=== PATIENT | female | born 1990 | race Native Hawaiian/Other Pacific Islander ===

== ENCOUNTER 2023-03-05 08:38 | Outpatient (CLI) | payer OTHER, SELFPAY | END 2023-03-05 08:39 | disposition home or self-care (01) | PROVIDERS: PCP Family Medicine; Referring Provider Family Medicine; Visit Provider Family Medicine | DX: Z00.00 Encounter for general adult medical examination without abnormal findings (principal); F41.8 Other specified anxiety disorders; Z13.6 Encounter for screening for cardiovascular disorders | CPT/HCPCS: 80048; 80061 ==

== ENCOUNTER 2023-06-24 13:46 | Outpatient (REF) | payer OTHER, SELFPAY | END 2023-06-24 13:47 | disposition home or self-care (01) | LOC: NFLDREF 13:46 | PROVIDERS: PCP Family Medicine; Referring Provider Family Medicine; Visit Provider Nurse Practitioner Family | DX: F41.0 Panic disorder [episodic paroxysmal anxiety] (principal); Z79.899 Other long term (current) drug therapy; F98.8 Other specified behavioral and emotional disorders with onset usually occurring in childhood and adolescence | CPT/HCPCS: 82306; 84443 ==

== ENCOUNTER 2023-09-28 12:32 | Outpatient (CLI) | payer OTHER, SELFPAY | END 2023-09-28 12:33 | disposition home or self-care (01) | LOC: NFLDREF 10-03 06:30 | PROVIDERS: PCP Family Medicine; Referring Provider Family Medicine; Visit Provider Family Medicine | DX: N39.0 Urinary tract infection, site not specified (principal); N30.01 Acute cystitis with hematuria | CPT/HCPCS: 87086; 87186 ==

== ENCOUNTER 2024-01-08 12:30 | Emergency (ER) | payer OTHER, SELFPAY ==
[2024-01-08] VITALS (9 sets, daily range): BP systolic 106–112; BP diastolic 57–80; PULSE 53–70; RESP 16; TEMP 36.2; O2SAT 99–100; BMI 28.9
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
[2024-01-08] MEDS: ONDANSETRON 2 MG/ML inj 4 MG IVP (13:42)
[2024-01-08] MEDS: 0.9 % SODIUM CHLORIDE 500 ML 500 ML IV (13:42)
[2024-01-08] MEDS: diphenhydrAMINE 50 MG/ML inj 25 MG IVP (13:42)
[2024-01-08] MEDS: KETOROLAC 30 MG/ML inj IVP (13:42)
== END 2024-01-08 14:33 | disposition home or self-care (01) ==
PROVIDERS: Emergency Provider Family Medicine; PCP Family Medicine
DX: G43.901 Migraine, unspecified, not intractable, with status migrainosus (principal); S06.0X0A Concussion without loss of consciousness, initial encounter
CPT/HCPCS: 70450; 96374; 96375; 99284; J1200; J1885; J2405; J7030

== ENCOUNTER 2024-05-16 15:33 | Outpatient (CLI) | payer OTHER, SELFPAY | END 2024-05-16 15:34 | disposition home or self-care (01) | PROVIDERS: PCP Family Medicine; Referring Provider Family Medicine; Visit Provider Nurse Practitioner Family | DX: N30.00 Acute cystitis without hematuria (principal); B96.20 Unspecified Escherichia coli [E. coli] as the cause of diseases classified elsewhere | CPT/HCPCS: 87086; 87186 ==

== ENCOUNTER 2024-07-06 11:19 | Outpatient (CLI) | payer BC, SELFPAY | END 2024-07-06 11:20 | disposition home or self-care (01) | LOC: LKVREF 11:21 | PROVIDERS: PCP Family Medicine; Visit Provider Family Medicine | DX: Z00.00 Encounter for general adult medical examination without abnormal findings (principal) | CPT/HCPCS: 88141; 88142 ==

== ENCOUNTER 2024-10-12 09:02 | Outpatient (CLI) | payer BC, SELFPAY ==
[2024-10-12 14:26] LABS: Bacterial Vaginosis* Negative (Negative); Candida glab/krus NOT DETECTED (No Detected); Candida species DETECTED (No Detected); Trichomonas vaginalis NOT DETECTED (No Detected)
[2024-10-12 14:57] LABS: Chlamydia DNA Amplified* NOT DETECTED (No Detected); GC DNA Amplified* NOT DETECTED (No Detected)
== END 2024-10-12 09:03 | disposition home or self-care (01) ==
PROVIDERS: PCP Family Medicine; Visit Provider Registered Nurse
DX: Z11.3 Encounter for screening for infections with a predominantly sexual mode of transmission (principal)
CPT/HCPCS: 81513; 87481; 87491; 87591; 87661

== ENCOUNTER 2024-12-05 08:27 | Outpatient (CLI) | payer MEDICAID, SELFPAY ==
--- NOTE | 2024-12-05 08:15 | CRLHL7_ITS ---
For Patients: As a result of the Cures Act, medical imaging exams and procedure reports are released immediately into your electronic medical record. You may view this report before your referring provider. If you have questions, please contact your health care provider. OB ULTRASOUND INDICATION: Ultrasound for dates and viability. TECHNIQUE: Transabdominal and transvaginal 1st trimester OB ultrasound. Transvaginal images obtained for better characterization of the gestational sac and possible subchorionic hemorrhage. Grayscale and M-Mode Doppler images. LMP: 09/19/2024. TAWANNA by LMP: 06/26/2025. GA: 11 w, 0 d. Previous US: No. CRL: 4.4 cm. 11 w 1 d. TAWANNA: 06/25/2025. FHR: 163 BPM. Gestational sac: 4.4 cm, small in size. Yolk sac: 4.6 mm. Right ovary: 3.1 x 1.8 x 1.4 cm. Left ovary: N/V. IMPRESSION: 1. Single viable intrauterine . 2. Large inferior subchorionic hemorrhage involving a majority of the gestational sac. Sharif Hobbs M.D. Body/Diagnostic Radiologist [email or web address] RAQUEL/dominique fox/Dictated by: Sharif Hobbs MD @ 12/06/2024 9:15:00 AM (Electronically Signed)
== END 2024-12-05 08:28 | disposition home or self-care (01) ==
LOC: US 08:28
PROVIDERS: PCP Family Medicine; Visit Provider Advanced Practice Midwife
DX: Z34.91 Encounter for supervision of normal pregnancy, unspecified, first trimester (principal); O20.9 Hemorrhage in early pregnancy, unspecified; Z3A.11 11 weeks gestation of pregnancy
CPT/HCPCS: 76801; 76817; 83021; 86592; 86703; 86704; 86706; 86762; 86787; 86803; 86850; 86900; 86901; 87340

== ENCOUNTER 2024-12-05 11:31 | Outpatient (CLI) | payer BC, SELFPAY | END 2024-12-05 11:32 | disposition home or self-care (01) | PROVIDERS: PCP Family Medicine; Visit Provider Advanced Practice Midwife | DX: Z34.91 Encounter for supervision of normal pregnancy, unspecified, first trimester (principal); Z3A.11 11 weeks gestation of pregnancy | CPT/HCPCS: 83020; 83021; 85660; 86592; 86703; 86704; 86706; 86762; 86787; 86803; 86850; 86900; 86901; 87086; 87340 ==

== ENCOUNTER 2025-02-07 11:14 | Outpatient (CLI) | payer MEDICAID, SELFPAY ==
--- NOTE | 2025-02-07 11:15 | CRLHL7_ITS ---
For Patients: As a result of the Century Cures Act, medical imaging exams and procedure reports are released immediately into your electronic medical record. You may view this report before your referring provider. If you have questions, please contact your health care provider. OB ULTRASOUND GREATER THAN 14 WEEKS, 02/07/2025 CLINICAL HISTORY: Supervision of normal . COMPARISON: None. TECHNIQUE: Real time bradley scale imaging of the fetus was performed. Transabdominal imaging performed. survey. FINDINGS: LMP: 09/19/2024. TAWANNA by LMP: 06/26/2025. GA: 20 weeks 1 day. POSITION: Vertex. CERVIX: Visualized. Technique: TA. Length of closed cervix: 3.8 cm. PLACENTA/CORD: Placenta Position: Fundal, right wall. Technique: TA. Placenta tip to internal OS: 9.0 cm. Umbilical Cord: 3 vessel. Placenta Insertion: Centra. AMNIOTIC FLUID: 5.3 cm SDP. OBSERVED STRUCTURES: CALVARIUM/SPINE: Cerebellum: 1.9 cm, 19 weeks 3 days Cisterna Magna: 4.2 mm Nuchal Fold: 4.5 mm Lateral Ventricles: 6.5 mm CSP Midline Falx Choroid Plexus Spine ABDOMEN: Stomach Abd Cord Insert Urinary Bladder Kidneys Diaphragm FACE: Nose/Lips Orbital View Profile LIMBS: Upper Extremities Lower Extremities Hands Feet VASCULAR: 4 Ch Heart LVOT RVOT 3VV 3VTV BIOMETRY: BPD: 48 cm, 20 weeks 4 days. 67% HC: 17.8 cm, 20 weeks 1 day. 44% AC: 15.7 cm, 20 weeks 6 days. 68% FL: 3.4 cm, 20 weeks 5 days. 62% FL/AC: 21.66% HC/AC: 1.13. Heart Rate: 152 bpm. Age by this US: 20 weeks 3 days. TAWANNA by this US: 06/24/2025. EFW: 371.69 grams, 0 lb 13 oz. Percentile by TAWANNA: 77% IMPRESSION: 1. Normal anatomic survey. 2. Concordance of clinical and sonographic dating. Edil Silva M.D. Diagnostic Radiologist [email or web address] Transcribed: 1:15 pm DW/Dictated by: Edil Silva MD @ 02/07/2025 12:31:00 PM (Electronically Signed)
== END 2025-02-07 11:15 | disposition home or self-care (01) ==
LOC: US 11:16
PROVIDERS: PCP Family Medicine; Visit Provider Advanced Practice Midwife
DX: Z34.92 Encounter for supervision of normal pregnancy, unspecified, second trimester (principal); Z3A.20 20 weeks gestation of pregnancy
CPT/HCPCS: 76805; 87086

== ENCOUNTER 2025-02-27 22:52 | Outpatient (CLI) | payer MEDICAID, SELFPAY ==
[2025-02-27 23:16] VITALS: BP 115/64; PULSE 71; RESP 18; TEMP 37.1
[2025-02-27 23:31] LABS: Appearance Urine Clear (Clear); Bilirubin Urine Negative (Negative); Blood Urine Negative (Negative); Color Urine Yellow (Yellow); Glucose Urine Negative (Negative); Ketones Urine Negative (Negative); Leukocyte Esterase Urine Negative (Negative); Nitrite Urine Negative (Negative); Protein Urine Negative (Negative); Specific Gravity Urine 1.015 (1.000-1.030)
[2025-02-28 00:27] LABS: Bacterial Vaginosis* Negative (Negative); Candida glab/krus NOT DETECTED (No Detected); Candida species DETECTED (No Detected); Trichomonas vaginalis NOT DETECTED (No Detected)
[2025-02-28] MEDS: FLUCONAZOLE 150 MG TABLET PO (00:57)
--- NOTE | 2025-02-28 01:14 | PC.OBNST ---
NST Note NST Note Start: 02/27/25 23:05 Freq: ONCE Status: Active Protocol: Document 02/28/25 01:12 SIMONE (Rec: 02/28/25 01:14 SIMONE [email or web address]) NST Note 3 Para (# of births) 3 EDC 06/26/25 Gestational Age In 23 Weeks & 1 Days Weeks & Days Patient Presented Contractions/cramping with Complaint(s) of Reactive Yes Appropriate for Yes Gestational Age RN Ajay Santamaria RN Date 02/28/25 Appropriate for Yes Gestational Age JAIRO Sargent RN Date 02/28/25 OB NST charge Yes Complete NST Note Yes via Write Note The provider's electronic signature indicates the NST is reactive/appropriate for gestational age. *Note to provider: If an addendum is required, open the patient's chart and click on the note under the Nurse/Allied Health tab.
== END 2025-02-28 01:02 | disposition home or self-care (01) ==
LOC: OB OUT 22:52 → OB 22:53
PROVIDERS: PCP Family Medicine; Visit Provider Advanced Practice Midwife
DX: O47.02 False labor before 37 completed weeks of gestation, second trimester (principal); Z3A.23 23 weeks gestation of pregnancy
CPT/HCPCS: 59025; 81003; 81513; 87481; 87661; G0463; A9270

== ENCOUNTER 2025-04-02 11:08 | Outpatient (CLI) | payer BC, SELFPAY | END 2025-04-02 11:09 | disposition home or self-care (01) | LOC: NFLDREF 04-04 00:26 | PROVIDERS: PCP Family Medicine; Referring Provider Family Medicine; Visit Provider Advanced Practice Midwife | DX: Z34.92 Encounter for supervision of normal pregnancy, unspecified, second trimester (principal); Z3A.27 27 weeks gestation of pregnancy | CPT/HCPCS: 86592 ==

== ENCOUNTER 2025-05-29 10:40 | Outpatient (CLI) | payer BC, SELFPAY | END 2025-05-29 10:41 | disposition home or self-care (01) | LOC: NFLDREF 06-04 16:17 | PROVIDERS: PCP Family Medicine; Referring Provider Family Medicine; Visit Provider Midwife | DX: Z34.93 Encounter for supervision of normal pregnancy, unspecified, third trimester (principal) | CPT/HCPCS: 87081; 87653 ==

== ENCOUNTER 2025-06-05 07:24 | Outpatient (CLI) | payer BC, SELFPAY ==
[2025-06-05 07:33] VITALS: PULSE 72; O2SAT 99
[2025-06-05 07:42] VITALS: BP 121/69; PULSE 67
[2025-06-05] MEDS: TERBUTALINE 1 MG/ML INJ 0.25 MG SUBCUT (08:55)
--- NOTE | 2025-06-05 12:59 | PC.OBNST ---
NST Note NST Note Start: 06/05/25 07:30 Freq: ONCE Status: Active Protocol: Document 06/05/25 12:56 KATELYNN (Rec: 06/05/25 12:58 KATELYNN [id number]) NST Note 4 Para (# of births) 3 EDC 06/26/25 Gestational Age In 37 Weeks & 0 Days Weeks & Days Other Complaints ECV Reactive Yes Appropriate for Yes Gestational Age JAIRO Oden RN Date 06/05/25 Reactive Yes Appropriate for Yes Gestational Age JAIRO Lee RN Date 06/05/25 OB NST charge Yes Complete NST Note Yes via Write Note The provider's electronic signature indicates the NST is reactive/appropriate for gestational age. *Note to provider: If an addendum is required, open the patient's chart and click on the note under the Nurse/Allied Health tab.
[2025-06-05 21:19] VITALS: BP 139/79; PULSE 100
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
== END 2025-06-05 10:46 | disposition home or self-care (01) ==
LOC: OB 12:27 → OB CLI 06-06 08:23
PROVIDERS: PCP Family Medicine; Visit Provider Obstetrics & Gynecology
DX: O32.1XX0 Maternal care for breech presentation, not applicable or unspecified (principal); Z3A.37 37 weeks gestation of pregnancy
CPT/HCPCS: 59025; 59412; 76815; G0463; J3105

== ENCOUNTER 2025-06-19 10:36 | Outpatient (CLI) | payer BC, SELFPAY ==
--- NOTE | 2025-06-19 10:45 | CRLHL7_ITS ---
For Patients: As a result of the Cures Act, medical imaging exams and procedure reports are released immediately into your electronic medical record. You may view this report before your referring provider. If you have questions, please contact your health care provider. OB ULTRASOUND FOLLOW-UP/LIMITED CLINICAL HISTORY: Size vs dates. TECHNIQUE: Real time bradley scale imaging of the fetus was performed. Transabdominal imaging performed. FINDINGS: TAWANNA by LMP/US: 06/26/2025. GA: 39 weeks 0 days. Gestation: Single. COMPARISON: 02/07/2025. Cervix: Not visualized Positioning: Vertex. Amniotic Fluid: 6.1 cm SDP. Placenta: Technique: TA. Placenta Position: Anterior. Dopplers: Heart Rate: 142 bpm. BIOMETRY BDP: 9.6 cm, 39 weeks 0 days. 82% HC: 34.7 cm, 40 weeks 1 day. 67% AC: 37.2 cm, 41 weeks 1 day. >97% FL: 7.3 cm, 37 weeks 4 days. 21% FL/AC Ratio: 19.71% HC/AC Ratio: 0.93% EFW: 3974 grams, 8 lb 12 oz. Age by this US: 39 weeks 3 days. TAWANNA by this US: 06/23/2025. Percentile by TAWANNA: 89% IMPRESSION: 1. Sonographic gestational age 39 weeks 3 days and sonographic due date 06/23/2025. Good correlation with dates. Normal interval growth. 2. Estimated weight 89th percentile. Abdominal circumference greater than 97th percentile. Edil Silva M.D. Diagnostic Radiologist [email or web address] Transcribed: 1:43 pm DW/Dictated by: Edil Silva MD @ 06/19/2025 11:20:00 AM (Electronically Signed)
== END 2025-06-19 10:37 | disposition home or self-care (01) ==
PROVIDERS: PCP Family Medicine; Visit Provider Advanced Practice Midwife
DX: Z36.89 Encounter for other specified antenatal screening (principal); Z3A.39 39 weeks gestation of pregnancy
CPT/HCPCS: 76816

== ENCOUNTER 2025-06-25 11:01 | Outpatient (CLI) | payer BC, SELFPAY ==
[2025-06-25 12:08] VITALS: BP 130/71; PULSE 70; PULSE 76; RESP 16; TEMP 36.9; O2SAT 98
[2025-06-25] MEDS: ACETAMINOPHEN 500 MG TABLET 1000 MG PO (12:49)
[2025-06-25 12:54] LABS: Trichomonas No Trichomonas Seen (None Seen)
[2025-06-25 13:05] LABS: Amnisure Rom* Negative
--- NOTE | 2025-06-25 14:33 | PC.OBNST ---
NST Note NST Note Start: 06/25/25 11:21 Freq: ONCE Status: Active Protocol: Document 06/25/25 13:45 CWP (Rec: 06/25/25 14:33 CWP Desktop) NST Note 4 Para (# of births) 3 EDC 06/26/25 Gestational Age In 39 Weeks & 6 Days Weeks & Days Patient Presented Leaking fluid,Decreased movement,Pain with Complaint(s) of If Pain, describe intermittent, lower abdominal/pelvic pain location Reactive Yes Appropriate for Yes Gestational Age RN Leslie Vivar RNC Date 06/25/25 Reactive Yes Appropriate for Yes Gestational Age RN Ivory Bridges RN Date 06/25/25 OB NST charge Yes Complete NST Note Yes via Write Note The provider's electronic signature indicates the NST is reactive/appropriate for gestational age. *Note to provider: If an addendum is required, open the patient's chart and click on the note under the Nurse/Allied Health tab.
== END 2025-06-25 13:30 | disposition home or self-care (01) ==
LOC: OB OUT 11:03 → OB 11:43
PROVIDERS: PCP Family Medicine; Visit Provider Advanced Practice Midwife
DX: O47.1 False labor at or after 37 completed weeks of gestation (principal); O36.8130 Decreased fetal movements, third trimester, not applicable or unspecified; Z3A.39 39 weeks gestation of pregnancy
CPT/HCPCS: 59025; 84112; 87210; G0463; A9270

== ENCOUNTER 2025-06-30 00:48 | Inpatient (IN) | payer BC, SELFPAY ==
[2025-06-30] VITALS (111 sets, daily range): BP systolic 101–171; BP diastolic 57–103; PULSE 69–121; RESP 16–20; TEMP 36.3–37.2; O2SAT 95–99; BMI 38.0
[2025-06-30 00:14] LABS: Hematocrit* 31.3 % (33.0-51.0); Hemoglobin* 10.5 gm/dL (12.0-16.0); Immature Granulocytes Abs Auto 0.04 K/uL (0.00-0.30); Immature Granulocytes Pct Auto 0.4 %; Lymphocytes Absolute Auto 2.35 K/uL (0.90-2.90); Mean Corpuscular HGB Conc 34 gm/dL (32-36); Mean Corpuscular Hemoglobin 29 pg (26-34); Mean Corpuscular Volume 87 fL (80-100); RDW Coefficient of Variation % 13.3 % (11.5-15.5); Red Blood Count* 3.61 m/uL (4.00-5.20); White Blood Count* 10.23 K/uL (4.50-11.00)
[2025-06-30 00:16] LABS: Slide Review Reflex No
[2025-06-30] MEDS: LACTATED RINGERS 1000 ML 1,000 ML 500 ML IV (00:48)
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
[2025-06-30 01:37] LABS: Alanine Aminotransferase* 26 U/L (4-35); Aspartate Amino Transferase* 44 U/L (12-35); Creatinine* 0.7 mg/dL (0.5-1.5); Estimated Glomerular Filt Rate 117 ml/min
[2025-06-30] MEDS: ROPIVACAINE 0.2% 100 ml 100 ML 12 MG EPIDURAL (02:08)
[2025-06-30] MEDS: LIDOCAINE 2% (PF) 5 ML VIAL EPIDURAL (02:08)
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
[2025-06-30] MEDS: LACTATED RINGERS 1000 ML 1,000 ML IV (02:27)
--- NOTE | 2025-06-30 02:55 | PM.OBPNL ---
Subjective Date Seen: 06/30/25 Narrative: Fabiana presented to L&D in spontaneous labor. she is now comfortable with labor epidural and open to SVE and possibly AROM if appropriate. Objective Exam: Vitals Reviewed Constitutional:? Alert and oriented x3 Cervix: 9 cm/100%/0 to -1 station/vertex, anterior, soft/stretchy AROM: small amt of clear fluid NST: 150 bpm/mod variability/+ accelerations/no decelerations/approx q 3-4 min apart contractions Vital Signs: Last Vital Signs Pulse 82 06/30/25 02:50 BP 128/71 06/30/25 02:50 Pulse Ox 98 06/30/25 02:19 Plan Plan: ASSESSMENT:? 35 at 40.4 weeks gestation? complicated by:?anxiety/depression: on meds Labor type: Spontaneous, active labor? Category 1 FHR pattern.?? Labor complicated by: none? GBS neg labor epidural AROM: clear fluid? ? PLAN:? 1. Routine intrapartum cares as ordered. Continue with expectant management? 2. Monitoring per policy, continuous 3. Reposition pt prn to promote descent 4. Anticipate ?
[2025-06-30 03:50] LABS: Protein Creatinine Ratio Urine 0.45 (0-0.19)
[2025-06-30] MEDS: LACTATED RINGERS 1000 ML 1,000 ML 125 ML IV (06:21)
--- NOTE | 2025-06-30 07:05 | P.OBPN_ITS ---
Subjective Date Seen: 06/30/25 Narrative: Fabiana is a 35 y.o. [id number] at 40w4d who presented [facility] in spontaneous labor. she progressed to complete after labor epidural and AROM. she was complete as I was able to reduce an anterior lip while pushing at 0300, but the lip kept coming back so at 0348 we took a break from pushing to do the [employer] and help baby rotate. from my best assessment at the time I thought baby was in an ROT position, but was not wanting to move past the pubic bone. From around 0400 to 0640 pt was in a variety of positions as well as laboring down as RN thought her cervix then went back to 8 and then 9. currently 10 cm, but baby is still acinclytic, but better applied tothe cervix. Will continue to push and utilize a variety of position changes to assist in rotation and descent. pt tolerating labor well. Objective Exam: Vitals Reviewed Constitutional:? Alert and oriented x3 Cervix: 10 cm/100%/-2 station/vertex NST: 155 bpm/mod variability/+accelerations/some small variables and early dec elerations/2-3 min approx contractions Vital Signs: Last Vital Signs Temp 98.9 F 06/30/25 06:23 Pulse 74 06/30/25 06:37 Resp 20 06/30/25 06:23 BP 123/66 06/30/25 06:37 Pulse Ox 98 06/30/25 02:19 Plan Plan: ASSESSMENT:? 35 at 40.4 weeks gestation? complicated by:?anxiety/depression: on meds, pre-eclampsia Labor type: Spontaneous, active labor? Category 1 FHR pattern.?? Labor complicated by: pre-e, GBS neg labor epidural AROM: clear fluid? ? PLAN:? 1. Routine intrapartum cares as ordered. Continue with expectant management? 2. Monitoring per policy, continuous 3. Reposition pt prn to promote descent and continue pushing as appropriate. 4. Anticipate ?
[2025-06-30] MEDS: OXYTOCIN 30 unit/500 ML in NS 30 UNIT/500 ML BAG IVPB (07:34)
[2025-06-30] MEDS: METHYLERGONOVINE MALEATE 0.2 MG/ML INJ IM (07:45)
[2025-06-30] MEDS: CEFAZOLIN 2 GM in 0.9 % SODIUM CHLORIDE Mini-bag 100 ML IVPB (07:58)
--- NOTE | 2025-06-30 08:30 | W.PM.OBVAGDE ---
OB Procedure Vag Delivery Mother Details Mother Details: The patient is a 35 year-old, 4, Para 3, admitted on 06/30/25 at 40 4/7 weeks gestation. Admission Date: 06/30/25 Additional Details Amniotic Membrane Rupture Date: 06/30/25 Amniotic Membrane Rupture Time: 02:52 Amniotic Membrane Fluid Description: Clear Analgesia/Anesthesia Type: Epidural Waterbirth: No Pitcoin: Yes (last 5 min of pushing and AMTSL) Intrapartal Events: None Delivery augmentation: rupture of membranes Labor Onset: 00:00 Complete: 06:44 Pushin:44 Heart: heart tones during second stage were cat 2 with increasing baseline to 160s, moderate variability and variable deceleration. On my arrival to room at 0730, progress excellent and delivery hastened. Delivery Details Delivery Date: 06/30/25 Delivery Time: 07:39 Route of delivery: Infant Gender: Female Viability: Alive; Heart Rate Present Position at Delivery: OA Delivery Details: Patient was admitted for ONE[place] and progressed normally until about 8 cm. Baby was known asynclitic and OT and cupola melter helper was unable to successfully rotate the baby. Lip of cervix also attempted to be reduced without success. These attempts were done prior to full completion due to Fabiana's very strong urge to push and difficulty not pushing. Without success, position changes and increased efforts to not push to encourage rotation. Baby CATRACHO on my arrival to room and with one more position change for more effective pushing, rapid progress was made. 2 mL of pitocin was started 5 min prior to to assist patient with power and she felt she did not have the energy anymore. AROM 0252 with clear fluid. Patient was complete at 0644 and pushing at 0644. of a viable female at 0739 in OA. Vertex delivered OA. No nuchal cord or shoulder. Body delivered easily and without incident. passed to mothers abdomen with a vigorous cry. Cord was clamped and cut at > 5 minutes. APGARS were 8 at one minute and 9 at five minutes respectively. Baby respiratory effort changed quite a while after the and eventually she got CPAP. See nursing notes. Mouth was bulb suctioned immediately after . Increased vaginal bleeding prompted pit start and cord clamping at approximately 5 min after . Maternal efforts for third stage with no success and minimal traction produced sensation of cord evulsion. Clamp applied higher than where evulsion was occurring and maternal efforts continued without success of placental delivery. Pitocin for AMTSL was running. I requested methergine for its improved efficacy and assisting to promote delivery of retained placenta, especially due to history of hemorrhage. At the time, the mild BP elevations were not at the forefront of my thoughts. CGM requested to bedside. Minimal traction on the clamp revealed the cord had already evulsed and bleeding was stopped at this point. While waiting, fundal pressure and further vaginal assessment revealed frontal edge of placenta in cervical canal. Careful grasping of this edge with gentle traction and maternal efforts continued intermittently, giving Fabiana some breaks between. Dr Yash Aguilar was able to remove the placenta easily and stated a sweep of the uterus later did not reveal any retained products. Fundus firm. 2 g Ancef given. TXA given. Intact canal and perineum. QBL 740 cc. Mother and baby stable but severe range BP noted in the recovery period. Labetalol given and Magnesium for seizure prophylaxis started. Mother plans to breastfeed. Infant weight pending.?Repeat Pre-e labs ordered. Normal reflexes, neg clonus and no vision changes. She is complaining of a mild posterior SINGH that she feels is related to the hormonal shaking. Dr Yash Aguilar updated and consult for severe pre-e sent. 1 Minute Interval Total Score: 8 5 Minute Interval Total Score: 9 Additional Details Shoulder Dystocia: No Placenta Delivery Time: 07:52 Placental Delivery Description: Spontaneous Procedure Done: Global Blood Loss: 740 Laceration: None Episiotomy Description: None Blood Loss Measurement Type: QBL Bakri Used: No Sponge/Need Count Correct: Yes Cord Vessel Description: 3 Vessels Event Summary Status: Mother and infant were stable after delivery with peds attending to the baby and improving respiratory status but currently not needing a higher level of care and transfer. Disposition: floor
[2025-06-30] MEDS: LABETALOL HCL 5 MG/ML inj IVP ×3 (08:37→09:03)
[2025-06-30] MEDS: MAGNESIUM IV 4 GM/100 ML PIGGYBACK IVPB (08:53)
[2025-06-30] MEDS: ACETAMINOPHEN 500 MG TABLET 1000 MG PO (09:13)
[2025-06-30 09:23] LABS: Hematocrit* 32.3 % (33.0-51.0); Hemoglobin* 10.8 gm/dL (12.0-16.0); Mean Corpuscular HGB Conc 33 gm/dL (32-36); Mean Corpuscular Hemoglobin 29 pg (26-34); Mean Corpuscular Volume 87 fL (80-100); Red Blood Count* 3.73 m/uL (4.00-5.20); White Blood Count* 13.78 K/uL (4.50-11.00)
[2025-06-30 09:24] LABS: Slide Review Reflex No
[2025-06-30] MEDS: MAGNESIUM Infusion 40 GM/1,000 ML IV.SOLN IVPB (09:38)
[2025-06-30 09:44] LABS: Alanine Aminotransferase* 33 U/L (4-35); Aspartate Amino Transferase* 52 U/L (12-35); Blood Urea Nitrogen* 8 mg/dL (5-24); Creatinine* 0.9 mg/dL (0.5-1.5); Estimated Glomerular Filt Rate 87 ml/min
[2025-06-30] MEDS: TRANEXAMIC ACID 100 MG/ML INJ 1000 MG IV (09:53)
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
[2025-06-30] MEDS: LACTATED RINGERS 1000 ML 1,000 ML 75 ML IV (16:37)
[2025-06-30 17:17] LABS: Hematocrit* 31.3 % (33.0-51.0); Hemoglobin* 10.4 gm/dL (12.0-16.0); Mean Corpuscular HGB Conc 33 gm/dL (32-36); Mean Corpuscular Hemoglobin 29 pg (26-34); Mean Corpuscular Volume 88 fL (80-100); Red Blood Count* 3.55 m/uL (4.00-5.20); White Blood Count* 14.93 K/uL (4.50-11.00)
[2025-06-30 17:26] LABS: Slide Review Reflex No
[2025-06-30 17:33] LABS: Alanine Aminotransferase* 28 U/L (4-35); Aspartate Amino Transferase* 49 U/L (12-35); Blood Urea Nitrogen* 5 mg/dL (5-24); Creatinine* 0.7 mg/dL (0.5-1.5); Est. Creatinine Clearance* 94.56; Estimated Glomerular Filt Rate 117 ml/min
[2025-06-30] MEDS: FERROUS SULFATE 325 MG TABLET PO (21:10)
[2025-06-30 23:23] LABS: Hematocrit* 28.4 % (33.0-51.0); Hemoglobin* 9.5 gm/dL (12.0-16.0); Mean Corpuscular HGB Conc 34 gm/dL (32-36); Mean Corpuscular Hemoglobin 29 pg (26-34); Mean Corpuscular Volume 87 fL (80-100); Red Blood Count* 3.26 m/uL (4.00-5.20); White Blood Count* 14.70 K/uL (4.50-11.00)
[2025-06-30 23:28] LABS: Slide Review Reflex No
[2025-06-30 23:38] LABS: Alanine Aminotransferase* 33 U/L (4-35); Aspartate Amino Transferase* 66 U/L (12-35); Blood Urea Nitrogen* 5 mg/dL (5-24); Creatinine* 0.7 mg/dL (0.5-1.5); Est. Creatinine Clearance* 94.56; Estimated Glomerular Filt Rate 117 ml/min
[2025-07-01] VITALS (9 sets, daily range): BP systolic 101–152; BP diastolic 64–98; PULSE 71–83; RESP 16–18; TEMP 36.3–36.6; O2SAT 94–98
[2025-07-01] MEDS: MAGNESIUM Infusion 40 GM/1,000 ML IV.SOLN IVPB (04:18)
[2025-07-01] MEDS: LACTATED RINGERS 1000 ML 1,000 ML 75 ML IV (04:40)
[2025-07-01 06:28] LABS: Hematocrit* 28.0 % (33.0-51.0); Hemoglobin* 9.4 gm/dL (12.0-16.0); Mean Corpuscular HGB Conc 34 gm/dL (32-36); Mean Corpuscular Hemoglobin 29 pg (26-34); Mean Corpuscular Volume 88 fL (80-100); Red Blood Count* 3.20 m/uL (4.00-5.20); White Blood Count* 11.18 K/uL (4.50-11.00)
[2025-07-01] MEDS: ACETAMINOPHEN 500 MG TABLET 1000 MG PO ×2 (06:34→23:55)
[2025-07-01 06:41] LABS: Slide Review Reflex No
[2025-07-01 06:48] LABS: Alanine Aminotransferase* 31 U/L (4-35); Aspartate Amino Transferase* 65 U/L (12-35); Blood Urea Nitrogen* 4 mg/dL (5-24); Creatinine* 0.7 mg/dL (0.5-1.5); Est. Creatinine Clearance* 94.56; Estimated Glomerular Filt Rate 117 ml/min
[2025-07-01] MEDS: IBUPROFEN 600 MG TABLET PO ×2 (09:37→17:12)
[2025-07-01] MEDS: DOCUSATE SODIUM 100 MG CAPSULE PO (09:38)
--- NOTE | 2025-07-01 09:59 | PM.OBPNVD1 ---
OB - PN:Subj Subjective Time Seen by Provider: 13:08 Date Seen: 07/01/25 Narrative: The patient is a 35 year old G 4 P 40 0 4 at 44/7 weeks gestation that was admitted to the Center on 06/30/25 in labor for delivery. Delivery complicated by retained placenta, assisted with manual removal of placenta. During admission met criteria for preeclampsia with 2 elevated blood pressures more than 4 hours apart and elevated P/C ratio. Immediately after delivery develops persistent severely elevated blood pressures that required IV antihypertensive medication therapy(IV Labetalol 20mg x1, 40 mg x1, 80mg x1). She is status post 24 hours of magnesium sulfate for seizure prophylaxis this morning. Overnight patient had no complaints. Her pain is well controlled on oral pain medications. She is tolerating a regular diet. She has passed flatus. She is ambulating without difficulty. Lochia is scant. She is urinating without cid. Patient denies chest pain, SOB, n/v, headache, RUQ pain, vision changes, dizziness. OB - PN: Obj Exam Physical Exam: Vital signs: Temp Pulse Resp BP Pulse Ox O2 Del Method 97.7 F 77 16 112/70 97 Room Air 07/01/25 04:22 07/01/25 04:22 07/01/25 06:35 07/01/25 06:35 07/01/25 06:35 07/01/25 06:35 Narrative: Physical exam: General: No acute distress Psych: Alert and oriented x4, full affect HEENT: Normocephalic, atraumatic Heart: Regular rate and rhythm, no murmur rub or gallop Lungs: Clear to auscultation bilaterally Abdomen: Normoactive bowel sounds, soft, no tenderness, rebound, or guarding, no masses, no hepatosplenomegaly, no hernias Skin: No lesions or rashes Lower extremities: 2+ bilateral lower extremity edema Pelvic exam: Scant lochia on pad OB - PN: Obj Data Labs Labs: Laboratory Results - last 24 hr 06/30/25 06/30/25 07/01/25 17:10 23:16 05:25 WBC 14.93 H 14.70 H 11.18 H RBC 3.55 L 3.26 L 3.20 L Hgb 10.4 L 9.5 L 9.4 L Hct 31.3 L 28.4 L 28.0 L MCV 88 87 88 MCH 29 29 29 MCHC 33 34 34 Plt Count 193 210 204 BUN 5 5 4 L Creatinine 0.7 0.7 0.7 Estimated Creat Clear 94.56 94.56 94.56 Estimated GFR 117 117 117 Magnesium 5.6 H* 5.9 H* 6.0 H* AST 49 H 66 H 65 H ALT 28 33 31 OB - PN: A/P Delivery Assessment and Plan (1) Preeclampsia: Problem details: with severe features due to persistently severely elevated blood pressures requiring IV antihypertensive medication. Status: Acute Assessment and Plan: Pre-Eclampsia with severe features - Based severe ranging blood pressures requiring IV antihypertensives - BPs overnight: 100-130/60-80s - Symptoms: Asymptomatic - Magnesium: d/c at 9 AM. Will continue to monitor BP for 24 hours off magnesium sulfate - IV antihypertensives: s/p IV Labetalol 20mg x1, 40 mg x1, 80mg x1 - PO antihypertensives: - Pre-eclampsia labs on 07/01 @1100: Plt 204 Cr 0.7 ALT 33 AST 67 - UOP: 2.91 cc/kg/hr (2) (spontaneous vaginal delivery): Problem details: Retained placenta, assisted with manual removal of placenta. I also recommended giving 1 dose of TXA and 2g of IV Ancef. A manual sweep of the intrauterine cavity was completed after delivery, and no retained placental tissue was noted. Afterwards, bimanual exam revealed well contracted uterus. QBL elevated, continue close monitoring of bleeding. Status: Acute Plan Dispo: Patient is PPD#2. Need the following milestones: 24 hours of observation after cessation of magnesium sulfate. Anticipate discharge PPD#3.
[2025-07-01 11:17] LABS: Hematocrit* 29.0 % (33.0-51.0); Hemoglobin* 9.7 gm/dL (12.0-16.0); Mean Corpuscular HGB Conc 33 gm/dL (32-36); Mean Corpuscular Hemoglobin 29 pg (26-34); Mean Corpuscular Volume 88 fL (80-100); Red Blood Count* 3.31 m/uL (4.00-5.20); White Blood Count* 11.26 K/uL (4.50-11.00)
[2025-07-01 11:27] LABS: Slide Review Reflex No
[2025-07-01 11:33] LABS: Alanine Aminotransferase* 33 U/L (4-35); Aspartate Amino Transferase* 67 U/L (12-35); Blood Urea Nitrogen* 5 mg/dL (5-24); Creatinine* 0.7 mg/dL (0.5-1.5); Est. Creatinine Clearance* 94.56; Estimated Glomerular Filt Rate 117 ml/min
[2025-07-01] MEDS: SERTRALINE 100 MG TABLET PO (11:51)
[2025-07-01] MEDS: BENZOCAINE/MENTHOL SPRAY 85 GM AEROSOL 1 APPLIC TOPICAL (23:56)
[2025-07-02 00:05] VITALS: BP 135/89; PULSE 72; RESP 16; TEMP 36.9; O2SAT 97
[2025-07-02 04:23] VITALS: BP 122/73; PULSE 67; RESP 16; O2SAT 96
[2025-07-02] MEDS: DOCUSATE SODIUM 100 MG CAPSULE PO (08:07)
[2025-07-02] MEDS: SERTRALINE 100 MG TABLET PO (08:07)
[2025-07-02] MEDS: ACETAMINOPHEN 500 MG TABLET 1000 MG PO ×2 (08:07→14:35)
[2025-07-02] MEDS: FERROUS SULFATE 325 MG TABLET PO (08:08)
[2025-07-02 08:09] VITALS: BP 131/87; PULSE 50; RESP 16; TEMP 36.4; O2SAT 99
--- NOTE | 2025-07-02 08:28 | PM.OBPNVD1 ---
OB - PN:Subj Subjective Time Seen by Provider: 13:08 Date Seen: 07/01/25 Narrative: The patient is a 35 year old G 4 P 4004 that was admitted to the Center on 06/30/25 in labor at 40 4/7 weeks gestation. Delivery on 06/30/2025 complicated by retained placenta, assisted with manual removal of placenta. During admission met criteria for preeclampsia with 2 elevated blood pressures more than 4 hours apart and elevated P/C ratio. Immediately after delivery develops persistent severely elevated blood pressures that required IV antihypertensive medication therapy(IV Labetalol 20mg x1, 40 mg x1, 80mg x1). She is status post 24 hours of magnesium sulfate for seizure prophylaxis, infusion was discontinued yesterday morning. Overnight patient had no complaints. Her pain is well controlled on oral pain medications. She is tolerating a regular diet. She has passed flatus. She is ambulating without difficulty. Lochia is scant. She is urinating without cid. Patient denies chest pain, SOB, n/v, headache, RUQ pain, vision changes, dizziness. OB - PN: Obj Exam Physical Exam: Vital signs: Temp Pulse Resp BP Pulse Ox O2 Del Method 97.5 F L 50 L 16 131/87 99 Room Air 07/02/25 08:09 07/02/25 08:09 07/02/25 08:09 07/02/25 08:09 07/02/25 08:09 07/02/25 08:09 Constitutional: Constitutional: no acute distress Routine Neck Exam: Neck: Present normal inspection Routine Respiratory Exam: Respiratory: Present CTA bilaterally; Absent respiratory distress Routine Cardiovascular Exam: Cardiovascular: Present RRR; Absent murmur Routine Abdominal Exam: Abdominal: Present soft; Absent tenderness Fundus: Present firm Routine Extremities Exam: Extremities: Present normal inspection and pedal edema; Absent calf tenderness Routine Neurological Exam: Neurological: Present alert and oriented X3 Routine Psychiatric Exam: Psychiatric: Present normal affect OB - PN: Obj Data Labs Labs: Laboratory Results - last 24 hr 06/30/25 07/01/25 00:03 11:12 WBC 11.26 H RBC 3.31 L Hgb 9.7 L Hct 29.0 L MCV 88 MCH 29 MCHC 33 Plt Count 204 BUN 5 Creatinine 0.7 Estimated Creat Clear 94.56 Estimated GFR 117 Magnesium 5.2 H* AST 67 H ALT 33 RPR Screen Non Reactive OB - PN: A/P Delivery Assessment and Plan (1) Preeclampsia: Problem details: with severe features due to persistently severely elevated blood pressures requiring IV antihypertensive medication. Status: Acute (2) (spontaneous vaginal delivery): Problem details: Retained placenta, assisted with manual removal of placenta. I also recommended giving 1 dose of TXA and 2g of IV Ancef. A manual sweep of the intrauterine cavity was completed after delivery, and no retained placental tissue was noted. Afterwards, bimanual exam revealed well contracted uterus. QBL elevated, continue close monitoring of bleeding. Status: Acute Plan 1. The patient's labs were reviewed, and I note that her AST was still trending upwards yesterday, almost twice normal. Will recheck labs today. 2. Blood pressure is also trending upwards. Will start nifedipine ER 30 mg daily this morning. We discussed home monitoring of blood pressures following discharge, and short-term follow-up in the clinic. 3. We will re-evaluate later today for discharge. Plan day: 2 Plan: routine care
[2025-07-02 08:40] LABS: Hematocrit* 28.5 % (33.0-51.0); Hemoglobin* 9.3 gm/dL (12.0-16.0); Immature Granulocytes Abs Auto 0.02 K/uL (0.00-0.30); Immature Granulocytes Pct Auto 0.2 %; Lymphocytes Absolute Auto 2.34 K/uL (0.90-2.90); Mean Corpuscular HGB Conc 33 gm/dL (32-36); Mean Corpuscular Hemoglobin 29 pg (26-34); Mean Corpuscular Volume 89 fL (80-100); RDW Coefficient of Variation % 13.9 % (11.5-15.5); Red Blood Count* 3.20 m/uL (4.00-5.20); White Blood Count* 8.10 K/uL (4.50-11.00)
[2025-07-02 08:43] LABS: Slide Review Reflex No
[2025-07-02 09:06] LABS: Alanine Aminotransferase* 32 U/L (4-35); Aspartate Amino Transferase* 58 U/L (12-35)
[2025-07-02 09:40] VITALS: BP 101/54; PULSE 117; RESP 16; O2SAT 98
--- NOTE | 2025-07-02 09:44 | PC.NURSE ---
Patient feeling nauseous, tingling in her fingers and toes, and a pounding headache. Notified MD. Thinks it is related to Nifedipine and to continue monitoring.
--- NOTE | 2025-07-02 09:55 | PM.ANPOST ---
Post Anesthesia Note Post Anesthesia Note Patient seen: Inpatient Respiratory Status: adequate Cardiovascular Status: adequate Mental Status: baseline Pain: adequate Temp: baseline Anesthetic awareness: N/A Complications: none Follow care: none
[2025-07-02] MEDS: IBUPROFEN 600 MG TABLET PO (10:52)
[2025-07-02 12:00] VITALS: BP 126/81; PULSE 96; RESP 16; TEMP 36.5; O2SAT 98
[2025-07-02 16:30] VITALS: BP 121/77; PULSE 98; RESP 16; TEMP 36.8; O2SAT 97
--- NOTE | 2025-07-02 18:28 | PM.OBDSVD1 ---
DS: Providers Provider Date Seen: 07/02/25 Date of admission: 06/30/25 00:48 Primary care physician: Sp Douglass MD Admitting Clinician: Maxine Pastor MD Consults: 06/30/25 09:07 Consult to Physician [CONS] Routine Comment: Consulting Provider: Maxine Pastor Has provider been notified: Yes Attending Physician on discharge: Danielle Schwarz MD Date of Discharge: 07/02/25 DS: Diagnosis Discharge Diagnosis (1) (spontaneous vaginal delivery): Status: Acute Problem details: Retained placenta, assisted with manual removal of placenta. I also recommended giving 1 dose of TXA and 2g of IV Ancef. A manual sweep of the intrauterine cavity was completed after delivery, and no retained placental tissue was noted. Afterwards, bimanual exam revealed well contracted uterus. QBL elevated, continue close monitoring of bleeding. (2) Preeclampsia: Status: Acute Problem details: with severe features due to persistently severely elevated blood pressures requiring IV antihypertensive medication. Exam Narrative: Exam Narrative: see note from Dr. Montalvo this AM Const: Vital Signs, click to edit/add: Vital Signs - 24 hr 07/01/25 20:02 07/02/25 00:05 07/02/25 04:23 Temperature 97.7 F 98.5 F Pulse Rate [Pulse Oximeter] 83 72 67 Respiratory Rate 16 16 16 Blood Pressure [Ri ght Arm] 118/74 135/89 122/73 Pulse Oximetry 96 97 96 Oxygen Delivery Me thod Room Air Room Air 07/02/25 08:09 07/02/25 09:40 07/02/25 12:00 Temperature 97.5 F L 97.7 F Pulse Rate [Pulse Oximeter] 50 L 117 H 96 Respiratory Rate 16 16 16 Blood Pressure [Ri ght Arm] 131/87 101/54 L 126/81 Pulse Oximetry 99 98 98 Oxygen Delivery Me thod Room Air Room Air Room Air 07/02/25 16:30 Temperature 98.2 F Pulse Rate [Pulse Oximeter] 98 Respiratory Rate 16 Blood Pressure [Ri ght Arm] 121/77 Pulse Oximetry 97 Oxygen Delivery Me thod Room Air OB - DS: Summary Hospital Course Hospital Course: Fabiana is a 35 yo G4 now P4 woman who is s/p normal spontaneous vaginal delivery on 06/30. Delivery was complicated by need for manual removal of the placenta after avulsed cord. QBL was 740. Patient was diagnosed with preeclampsia with severe features by blood pressure criteria shortly after delivery. She was treated with magnesium sulfate for seizure prophylaxis for 24 hours. She was also started on nifedipine ER 30 mg daily; this was discontinued after she experienced low blood pressures on this agent. At this time, late on day #2, blood pressures have been normal for 24 hours. Her Hb was 9.3 at last check. She did develop elevated AST, but this was downtrending at last check (58). [place] Gender: Female Time Spent with Patient Time attestation: Total time spent providing and/or coordinating discharge services: Discharge Plan Discharge Disposition: Home, Self-Care Date of Admission: 06/30/25 00:48 Attending Provider on Discharge: Danielle Schwarz Consulting Providers: Maxine Pastor Primary Care Provider: Sp Douglass Condition: Stable Anticipated Discharge Date/Time: 07/02/25 19:26 Discharge Medications: New ibuprofen 600 mg Tablet 600 mg PO Q6H PRNQty: 30 0RF Continued acetaminophen [Tylenol Extra Strength] 500 mg tablet 500 mg PO Q6H PRN sertraline 50 mg tablet 100 mg PO QDAY Ban-Acid 300 mg (750 mg) tablet,chewable 300 mg PO BID One Daily 28-800-440 mg-mcg-mg combo pack PO Discharge Orders: Discharge Order (Routine); Ordered 07/02/25 Ordered By: Danielle Schwarz Patient Education: OB High Blood Pressure DC, OB Care, OB Over the Counter Medication Information, OB Vaginal/Breast Feeding Additional Instructions: Follow up in the [facility] for a blood pressure check in 1-2 days. Activity Level: Activity as Tolerated Discharge Diet: Regular Follow Up Appointments: Sp Douglass MD [Primary Care Provider, Family Practice] [facility] [Provider Group] Forms: Method CRM Info Instructions Discharge Comments: Follow up within 5 days for BP check. Call clinic with BPs 140s / 90s.
== END 2025-07-02 20:00 | disposition home or self-care (01) | DRG 541 ==
LOC: OB OUT 00:48 → OB 00:48
PROVIDERS: Midwife; Midwife, Lay; Obstetrics & Gynecology; Admitting Provider Obstetrics & Gynecology; PCP Family Medicine; Visit Provider Obstetrics & Gynecology
DX: O73.0 Retained placenta without hemorrhage (principal); O14.04 Mild to moderate pre-eclampsia, complicating childbirth; O14.15 Severe pre-eclampsia, complicating the puerperium; Z62.810 Personal history of physical and sexual abuse in childhood; O99.344 Other mental disorders complicating childbirth; F41.8 Other specified anxiety disorders; F98.8 Other specified behavioral and emotional disorders with onset usually occurring in childhood and adolescence; Z37.0 Single live birth; Z3A.40 40 weeks gestation of pregnancy
CPT/HCPCS: 01967; 36415; 76815; 82565; 82570; 83735; 84156; 84450; 84460; 84520; 85018; 85025; 85027; 86592; 86850; 86900; 86901; 88307; 94761; G0463; A9270; J0690; J2210; J2795; J3010; J3475; J7120

== ENCOUNTER 2025-07-05 10:43 | Outpatient (CLI) | payer BC, SELFPAY | END 2025-07-05 10:44 | disposition home or self-care (01) | PROVIDERS: PCP Family Medicine; Visit Provider Physician Assistant | DX: O14.93 Unspecified pre-eclampsia, third trimester (principal) | CPT/HCPCS: 82565; 84450; 84460; 84520 ==

== ENCOUNTER 2025-07-05 17:01 | Inpatient (IN) | payer BC, SELFPAY ==
[2025-07-05] VITALS (14 sets, daily range): BP systolic 97–142; BP diastolic 62–93; PULSE 80–120; RESP 16–24; TEMP 36.6–36.7; O2SAT 93–100
[2025-07-05] MEDS: LACTATED RINGERS 1000 ML 1,000 ML 75 ML IV (17:33)
[2025-07-05] MEDS: MAGNESIUM IV 4 GM/100 ML PIGGYBACK IVPB (17:33)
[2025-07-05 17:34] LABS: Hematocrit* 32.8 % (33.0-51.0); Hemoglobin* 10.7 gm/dL (12.0-16.0); Mean Corpuscular HGB Conc 33 gm/dL (32-36); Mean Corpuscular Hemoglobin 29 pg (26-34); Mean Corpuscular Volume 88 fL (80-100); Red Blood Count* 3.71 m/uL (4.00-5.20); White Blood Count* 7.53 K/uL (4.50-11.00)
[2025-07-05 17:37] LABS: Slide Review Reflex No
[2025-07-05 17:51] LABS: Blood Urea Nitrogen* 10 mg/dL (5-24); Creatinine* 0.6 mg/dL (0.5-1.5); Estimated Glomerular Filt Rate 121 ml/min
[2025-07-05 17:52] LABS: Alanine Aminotransferase* 151 U/L (4-35); Aspartate Amino Transferase* 119 U/L (12-35)
[2025-07-05] MEDS: MAGNESIUM Infusion 40 GM/1,000 ML IV.SOLN IVPB (18:01)
[2025-07-05] MEDS: ACETAMINOPHEN 500 MG TABLET 1000 MG PO (18:43)
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
--- NOTE | 2025-07-05 19:20 | PC.NURSE ---
After the loading dose of magnesium sulfate was begun, the pt expressed a feeling of chest pain or like someone is sitting on my chest to the RN at bedside. Dr. Karishma MD, was called and updated on this report from the pt. Dr. Schwarz requested that the magnesium infusion be slowed to the maintenance rate. She said to notify her if the patient's symptoms do not improve or resolve and she would come to the bedside for evaluation. Infusion rate slowed to maintenance rate and the patient's chest pain improved within minutes of slowing the IV rate. RN remained at the bedside at all times. Pt's improvement in symptoms was reported to Dr. Schwarz when she was at the bedside for evaluation this evening.
[2025-07-05] MEDS: SERTRALINE 100 MG TABLET PO (19:54)
[2025-07-05 23:18] LABS: Hematocrit* 32.9 % (33.0-51.0); Hemoglobin* 10.9 gm/dL (12.0-16.0); Mean Corpuscular HGB Conc 33 gm/dL (32-36); Mean Corpuscular Hemoglobin 29 pg (26-34); Mean Corpuscular Volume 88 fL (80-100); Red Blood Count* 3.73 m/uL (4.00-5.20); White Blood Count* 8.30 K/uL (4.50-11.00)
[2025-07-05 23:21] LABS: Slide Review Reflex No
[2025-07-05 23:37] LABS: Alanine Aminotransferase* 134 U/L (4-35); Aspartate Amino Transferase* 97 U/L (12-35); Blood Urea Nitrogen* 10 mg/dL (5-24); Creatinine* 0.7 mg/dL (0.5-1.5); Est. Creatinine Clearance* 94.56; Estimated Glomerular Filt Rate 117 ml/min
[2025-07-06] VITALS (10 sets, daily range): BP systolic 109–136; BP diastolic 68–84; PULSE 89–108; RESP 14–20; TEMP 36.5–37.1; O2SAT 97–98
[2025-07-06 06:28] LABS: Hematocrit* 33.9 % (33.0-51.0); Hemoglobin* 10.9 gm/dL (12.0-16.0); Mean Corpuscular HGB Conc 32 gm/dL (32-36); Mean Corpuscular Hemoglobin 29 pg (26-34); Mean Corpuscular Volume 89 fL (80-100); Red Blood Count* 3.79 m/uL (4.00-5.20); White Blood Count* 7.13 K/uL (4.50-11.00)
[2025-07-06 06:29] LABS: Slide Review Reflex No
[2025-07-06 06:55] LABS: Alanine Aminotransferase* 120 U/L (4-35); Aspartate Amino Transferase* 74 U/L (12-35); Blood Urea Nitrogen* 12 mg/dL (5-24); Creatinine* 0.7 mg/dL (0.5-1.5); Est. Creatinine Clearance* 94.56; Estimated Glomerular Filt Rate 117 ml/min
[2025-07-06] MEDS: SERTRALINE 100 MG TABLET PO (08:41)
[2025-07-06 11:40] LABS: Hematocrit* 37.7 % (33.0-51.0); Hemoglobin* 12.2 gm/dL (12.0-16.0); Mean Corpuscular HGB Conc 32 gm/dL (32-36); Mean Corpuscular Hemoglobin 29 pg (26-34); Mean Corpuscular Volume 89 fL (80-100); Red Blood Count* 4.22 m/uL (4.00-5.20); White Blood Count* 8.46 K/uL (4.50-11.00)
[2025-07-06 11:49] LABS: Slide Review Reflex No
[2025-07-06 12:02] LABS: Blood Urea Nitrogen* 10 mg/dL (5-24); Creatinine* 0.7 mg/dL (0.5-1.5); Est. Creatinine Clearance* 94.56; Estimated Glomerular Filt Rate 117 ml/min
[2025-07-06 12:03] LABS: Alanine Aminotransferase* 132 U/L (4-35); Aspartate Amino Transferase* 77 U/L (12-35)
[2025-07-06] MEDS: LACTATED RINGERS 1000 ML 1,000 ML 975 ML IV (12:41)
[2025-07-06] MEDS: ACETAMINOPHEN 500 MG TABLET 1000 MG PO (12:41)
--- NOTE | 2025-07-06 12:46 | P.DS_ITS ---
DS: Providers Provider Date of admission: 07/05/25 17:01 Primary care physician: Sp Douglass MD Admitting Clinician: Danielle Schwarz MD Attending Physician on discharge: Danielle Schwarz MD DS: Diagnosis Discharge Diagnosis (1) Preeclampsia: Status: Acute Problem details: with severe features. During admission for labor, diagnosis based on severely elevated BP. Now recurrent, based on severely elevated transaminases. Discharge Plan Discharge Date of Admission: 07/05/25 17:01 Attending Physician on Admission: Danielle Schwarz Primary Care Provider: Sp Douglass Discharge Medications: No Action sertraline 50 mg tablet 100 mg PO QDAY nifedipine 30 mg tablet extended release 30 mg PO BID Qty: 60 0RF ibuprofen 600 mg Tablet 600 mg PO Q6H PRNQty: 30 0RF Follow Up Appointments: Sp Douglass MD [Primary Care Provider, [facility]] Hospital Course Labs Labs: Laboratory Tests 07/06/25 07/06/25 07/05/25 Range/Units 11:25 05:41 23:12 WBC 8.46 7.13 8.30 (4.50-11.00) K/uL RBC 4.22 3.79 L 3.73 L (4.00-5.20) m/uL Hgb 12.2 10.9 L 10.9 L (12.0-16.0) gm/dL Hct 37.7 33.9 32.9 L (33.0-51.0) % MCV 89 89 88 (80-100) fL MCH 29 29 29 (26-34) pg MCHC 32 32 33 (32-36) gm/dL Plt Count 462 H 391 361 (140-440) K/uL BUN 10 12 10 (5-24) mg/dL Creatinine 0.7 0.7 0.7 (0.5-1.5) mg/dL Estimated Creat Clear 94.56 94.56 94.56 Estimated GFR 117 117 117 ml/min Magnesium 4.6 H* 4.1 H* 3.9 H (1.5-2.6) mg/dL AST 77 H 74 H 97 H (12-35) U/L ALT 132 H 120 H 134 H (4-35) U/L 07/05/25 07/05/25 Range/Units 21:42 17:30 WBC 7.53 (4.50-11.00) K/uL RBC 3.71 L (4.00-5.20) m/uL Hgb 10.7 L (12.0-16.0) gm/dL Hct 32.8 L (33.0-51.0) % MCV 88 (80-100) fL MCH 29 (26-34) pg MCHC 33 (32-36) gm/dL Plt Count 366 (140-440) K/uL BUN 10 (5-24) mg/dL Creatinine 0.6 (0.5-1.5) mg/dL Estimated Creat Clear Estimated GFR 121 ml/min Magnesium 4.8 H* (1.5-2.6) mg/dL AST 119 H (12-35) U/L ALT 151 H (4-35) U/L OB Problem List Additional Plan (1) Preeclampsia: Problem details: with severe features. During admission for labor, diagnosis based on severely elevated BP. Now recurrent, based on severely elevated transaminases. Status: Acute DS: Summary Vital Signs Vital Signs: Vital Signs Temp Pulse Resp BP Pulse Ox O2 Del Method 07/06/25 11:17 98 F 90 20 125/84 07/06/25 08:30 97.9 F 89 20 122/78 07/06/25 06:26 97.7 F 93 20 122/72 07/06/25 04:50 98.7 F 90 14 129/83 07/06/25 02:48 108 H 18 120/75 97 Room Air 07/06/25 00:48 100 18 119/80 97 Room Air 07/05/25 22:46 102 H 24 113/68 93 Room Air 07/05/25 22:17 100 16 115/74 94 Room Air 07/05/25 21:59 95 16 115/66 93 Room Air 07/05/25 21:30 98 F 120 H 22 97/62 100 Room Air 07/05/25 19:56 88 20 135/88 97 Room Air 07/05/25 19:16 91 16 130/85 96 Room Air 07/05/25 19:06 81 16 142/87 H 99 Room Air 07/05/25 18:53 87 18 137/93 H 99 Room Air 07/05/25 18:36 89 18 132/86 99 Room Air 07/05/25 18:21 82 18 139/89 98 Room Air 07/05/25 18:06 80 20 136/89 98 Room Air 07/05/25 17:51 82 20 134/90 H 99 Room Air 07/05/25 17:36 83 18 130/85 98 Room Air 07/05/25 17:11 98.1 F 90 18 124/84 97 Room Air
--- NOTE | 2025-07-06 12:47 | P.OBPN_ITS ---
OB - PN:Subj Subjective Date Seen: 07/06/25 Narrative: Fabiana is a 35-year-old G4 now P4 woman who is status post normal spontaneous vaginal delivery on 06/30/2025 at 40 weeks, 4 days gestation. She was diagnosed with preeclampsia during labor, which became severe by blood pressure criteria shortly after delivery. She was treated with magnesium sulfate for seizure prophylaxis for 24 hours during that hospitalization, and then was then started on nifedipine ER 30 mg daily, but this was discontinued after she experience low blood pressures on this agent. She was found to have an elevated AST, but this was down turning at last check prior to discharge. She was discharged on pos tpartum day 2 on no antihypertensives. [facility] check which showed mild ranging BP. She was prescribed nifedipine ER 30 mg b.i.d. PreE labs was notable with AST 135, ALT 163.Creatinine and platelets were normal. She was thus readmitted for magnesium sulfate infusion for seizure prophylaxis once again. Fabiana had chest pressure with 2g/hr mag maintenance rate. This was subsequently reduced 1 gram/hour. Unfortunately, she is not in the therapeutic magnesium range. She reports no issues with her initial magnesium infusion. Currently, has no chest pressure at all and feeling well. Discussed increasing maintenance rate back to the standard 2 g per hour to reach therapeutic range. Patient amenable to this plan. Overnight patient had no complaints. Her pain is well controlled on oral pain medications. She is tolerating a regular diet. She has passed flatus. She is ambulating without difficulty. Lochia is scant. She is urinating without cid. Patient denies chest pain, SOB, n/v, headache, RUQ pain, vision changes, dizziness. I also discussed her placental pathology with her. 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 Patient denies any D&C or any previous uterine surgery. We discussed placenta accreta spectrum. This refers to abnormally adherent placenta to the uterine wall. This results in varying degrees of invasion into the myometrium. The most significant risk factors prior , vaginally if there is a placenta previa. Other risk factors include prior uterine surgeries, advanced maternal age, and multiparity. The most significant risk is hemorrhage. Thankfully, her bleeding is minimal. Encouraged vigilance. Recurrence rate of occult accreta of in subsequent can be up to 30%. If she desires subsequent pregnancies, she would be considered high risk. Increased surveillance would be warranted. Additionally, she would not be able to deliver at our institution and we would recommend delivery at a tertiary care center. Patient verbalized understanding. She and her partner have been considering permanent sterilization. With this new finding, they might finalized our plans. Encouraged patient to keep us updated on her symptoms and final decision regarding future family planning. OB - PN: Obj Exam Physical Exam: Vital signs: Temp Pulse Resp BP Pulse Ox O2 Del Method 98 F 90 20 125/84 97 Room Air 07/06/25 11:17 07/06/25 11:17 07/06/25 11:17 07/06/25 11:17 07/06/25 02:48 07/06/25 02:48 Narrative: Physical exam: General: No acute distress Psych: Alert and oriented x4, full affect HEENT: Normocephalic, atraumatic Heart: Regular rate and rhythm, no murmur rub or gallop Lungs: Clear to auscultation bilaterally Abdomen: Soft, no tenderness, rebound, or guarding. Uterus firm 3 cm below umbilicus. Skin: No lesions or rashes Lower extremities: Trace bilateral lower extremity edema. Pelvic exam: Scant bleeding on pad. OB - PN: Obj Data Labs Labs: Laboratory Results - last 24 hr 07/05/25 07/05/25 07/05/25 17:30 21:42 23:12 WBC 7.53 8.30 RBC 3.71 L 3.73 L Hgb 10.7 L 10.9 L Hct 32.8 L 32.9 L MCV 88 88 MCH 29 29 MCHC 33 33 Plt Count 366 361 BUN 10 10 Creatinine 0.6 0.7 Estimated Creat Clear 94.56 Estimated GFR 121 117 Magnesium 4.8 H* 3.9 H AST 119 H 97 H ALT 151 H 134 H 07/06/25 07/06/25 05:41 11:25 WBC 7.13 8.46 RBC 3.79 L 4.22 Hgb 10.9 L 12.2 Hct 33.9 37.7 MCV 89 89 MCH 29 29 MCHC 32 32 Plt Count 391 462 H BUN 12 10 Creatinine 0.7 0.7 Estimated Creat Clear 94.56 94.56 Estimated GFR 117 117 Magnesium 4.1 H* 4.6 H* AST 74 H 77 H ALT 120 H 132 H OB - PN: A/P Delivery Assessment and Plan (1) Preeclampsia: Problem details: with severe features. During admission for labor, diagnosis based on severely elevated BP. Now recurrent, based on severely elevated transaminases. Status: Acute Assessment and Plan: Pre-Eclampsia with severe features - Based severe ranging blood pressures requiring IV antihypertensives and severe ranging transaminitis - BPs overnight: 100-130/60-80s - Symptoms: Asymptomatic - Magnesium: On magnesium sulfate for seizure prophylaxis. Increased to 2 grams/hour for maintenance dose - IV antihypertensives: Currently not indicated - PO antihypertensives: Nifedipine if XL 30 mg b.i.d. - Pre-eclampsia labs on 07/06 @0530: Plt 391 Cr 0.7 ALT 74 AST 120 - Pre-eclampsia labs on 07/06 @1115: Plt 462 Cr 0.7 ALT 77 AST 132 - UOP: Adequate (2) (spontaneous vaginal delivery): Problem details: Retained placenta, assisted with manual removal of placenta. I also recommended giving 1 dose of TXA and 2g of IV Ancef. A manual sweep of the intrauterine cavity was completed after delivery, and no retained placental tissue was noted. Afterwards, bimanual exam revealed well contracted uterus. QBL elevated, continue close monitoring of bleeding. Status: Acute (3) Placenta accreta: Status: Acute Assessment and Plan: - Occult accreta on pathology - Discussed with patient implication - Currently, minimal to moderate lochia - Vigilance with regard to vaginal bleeding
[2025-07-06 17:52] LABS: Alanine Aminotransferase* 109 U/L (4-35); Aspartate Amino Transferase* 66 U/L (12-35); Blood Urea Nitrogen* 13 mg/dL (5-24); Creatinine* 0.7 mg/dL (0.5-1.5); Est. Creatinine Clearance* 94.56; Estimated Glomerular Filt Rate 117 ml/min
[2025-07-06 17:54] LABS: Hematocrit* 36.5 % (33.0-51.0); Hemoglobin* 11.6 gm/dL (12.0-16.0); Mean Corpuscular HGB Conc 32 gm/dL (32-36); Mean Corpuscular Hemoglobin 29 pg (26-34); Mean Corpuscular Volume 90 fL (80-100); Red Blood Count* 4.07 m/uL (4.00-5.20); Slide Review Reflex No; White Blood Count* 7.79 K/uL (4.50-11.00)
[2025-07-07 01:19] VITALS: BP 120/75; PULSE 104; RESP 16; TEMP 36.8; O2SAT 96
[2025-07-07 05:20] VITALS: BP 106/67; PULSE 84; RESP 16; TEMP 36.8; O2SAT 96
[2025-07-07 09:09] VITALS: BP 114/79; PULSE 74; RESP 16; TEMP 36.6; O2SAT 97
[2025-07-07] MEDS: SERTRALINE 100 MG TABLET PO (09:11)
[2025-07-07] MEDS: ACETAMINOPHEN 500 MG TABLET 1000 MG PO (11:16)
[2025-07-07 11:18] VITALS: BP 124/83
--- NOTE | 2025-07-07 11:33 | PM.OBDSVD1 ---
DS: Providers Provider Date Seen: 07/07/25 Date of admission: 07/05/25 17:01 Primary care physician: Sp Douglass MD Admitting Clinician: Danielle Schwarz MD Attending Physician on discharge: Becka Montalvo MD Date of Discharge: 07/07/25 DS: Diagnosis Discharge Diagnosis (1) Preeclampsia: Status: Acute Problem details: with severe features. During admission for labor, diagnosis based on severely elevated BP. Now recurrent, based on severely elevated transaminases. (2) Placenta accreta: Status: Acute Exam Const: Vital Signs, click to edit/add: Vital Signs - 24 hr 07/06/25 12:30 07/06/25 14:46 07/06/25 18:05 Temperature 97.9 F 98 F Pulse Rate [Pulse Oximeter] 108 H 94 90 Respiratory Rate 18 18 18 Blood Pressure [Ri ght Arm] 109/71 112/68 125/82 Pulse Oximetry 97 97 98 Oxygen Delivery Me thod Room Air Room Air Room Air 07/06/25 20:33 07/07/25 01:19 07/07/25 05:20 Temperature 98.4 F 98.3 F 98.2 F Pulse Rate [Pulse Oximeter] 96 104 H 84 Respiratory Rate 18 16 16 Blood Pressure [Ri ght Arm] 136/83 120/75 106/67 Pulse Oximetry 97 96 96 Oxygen Delivery Me thod Room Air Room Air Room Air 07/07/25 09:09 07/07/25 11:18 Temperature 98 F Pulse Rate [Pulse Oximeter] 74 Respiratory Rate 16 Blood Pressure [Ri ght Arm] 114/79 124/83 Pulse Oximetry 97 Oxygen Delivery Me thod Room Air Documenting provider has reviewed patient's vital signs: yes Common normals: no apparent distress and oriented x3 General appearance: cooperative and comfortable HENMT: Common normals: normocephalic Head and scalp: normocephalic Resp: Common normals: normal respiratory effort Cardio: Common normals: regular rate Rate: regular rate Extremity: Common normals: normal to inspection and no pedal edema Neuro: Common normals: oriented x3 Psych: Common normals: affect normal OB - DS: Summary Hospital Course Hospital Course: Fabiana is a 35-year-old G4 now P4 woman who is status post normal spontaneous vaginal delivery on 06/30/2025 at 40 weeks, 4 days gestation. She was diagnosed with preeclampsia during labor, which became severe by blood pressure criteria shortly after delivery. She was treated with magnesium sulfate for seizure prophylaxis for 24 hours during that hospitalization, and then was then started on nifedipine ER 30 mg daily, but this was discontinued after she experience low blood pressures on this agent. She was found to have an elevated AST, but this was down turning at last check prior to discharge. She was discharged on day 2 on no antihypertensives. [facility] pressure check on 07/06/20 25which showed mild ranging BP. She was prescribed nifedipine ER 30 mg b.i.d. PreE labs was notable with AST 135, ALT 163. Creatinine and platelets were normal. She was thus readmitted for magnesium sulfate infusion for seizure prophylaxis again. The infusion was discontinued after 24 hours. She was maintained on nifedipine ER 30 mg b.i.d., and her blood pressures have been stable. Repeat labs were remarkable for downtrending transaminitis, with AST 66 an ALT 109 at last check. Of note, her delivery had been complicated by the need for manual removal of the placenta. Final placental pathology demonstrated findings consistent with possible occult placenta accreta. The patient was counseled by Dr. Thompson about the significance of this finding and the potential impact of the diagnosis on future . Status at Discharge Functional status at discharge: independent ambulation Overall status at discharge: patient is back to baseline Time Spent with Patient Time attestation: Total time spent providing and/or coordinating discharge services: Discharge Plan Discharge Disposition: Home, Self-Care Date of Admission: 07/05/25 17:01 Primary Care Provider: Sp Douglass Condition: Stable Anticipated Discharge Date/Time: 07/07/25 11:31 Discharge Medications: Continued sertraline 50 mg tablet 100 mg PO QDAY nifedipine 30 mg tablet extended release 30 mg PO BID Qty: 60 0RF ibuprofen 600 mg Tablet 600 mg PO Q6H PRNQty: 30 0RF Discharge Orders: Discharge Order (Routine); Ordered 07/07/25 Ordered By: Becka Montalvo Patient Education: OB High Blood Pressure DC Additional Instructions: Follow-up [facility] the [facility] in 3-5 days for blood pressure check with MD. Activity Level: Activity as Tolerated Discharge Diet: Regular Follow Up Appointments: Sp Dogulass MD [Primary Care Provider, Family Practice] Forms: [email or web address] Info Instructions
== END 2025-07-07 12:09 | disposition home or self-care (01) | DRG 561 ==
PROVIDERS: Admitting Provider Obstetrics & Gynecology; PCP Family Medicine; Visit Provider Obstetrics & Gynecology
DX: O14.15 Severe pre-eclampsia, complicating the puerperium (principal); O43.213 Placenta accreta, third trimester
CPT/HCPCS: 36415; 82565; 83735; 84450; 84460; 84520; 85027; A9270; J3475; J7120

== ENCOUNTER 2025-08-20 09:01 | Outpatient (CLI) | payer BC, SELFPAY | END 2025-08-20 09:02 | disposition home or self-care (01) | PROVIDERS: PCP Family Medicine; Visit Provider Physician Assistant | DX: O14.93 Unspecified pre-eclampsia, third trimester (principal) | CPT/HCPCS: 84450; 84460 ==